=== PATIENT | male | born 1940 | race Caucasian/White ===

== ENCOUNTER 2019-10-27 18:42 | Inpatient (IN) | payer OTHER ==
[~2019-10-27] VITALS: Ht 170.2 cm; Wt 65.8 kg
[2019-10-27 18:46] VITALS: BP 166/74
[2019-10-27 19:15] LABS: ABSOLUTE BASOPHILS 0.1 thou/uL (0.0-0.2); ABSOLUTE EOSINOPHILS 0.2 thou/uL (0.0-0.7); ABSOLUTE LYMPHOCYTES 0.8 thou/uL (0.8-5.3); ABSOLUTE MONOCYTES 0.4 thou/uL (0.0-1.2); ABSOLUTE NEUTROPHILS 4.3 thou/uL (1.6-8.1); BASOPHILS 0.9 %; EOSINOPHILS 2.7 %; HEMATOCRIT 32.2 % (42.0-52.0); HEMOGLOBIN 11.1 gm/dL (14.0-18.0); LYMPHOCYTES 13.9 %; MCH 31.1 pg (26.0-34.0); MCHC 34.5 g/dL (28.0-37.0); MCV 90.2 fL (80.0-100.0); MONOCYTES 7.2 %; NUCLEATED RBCS 0 /100WBC; PLATELET COUNT* 127 thou/uL (150-400); POLYS 75.3 %; RBC 3.57 mil/uL (4.50-6.00); RDW-CV 14.5 % (10.5-14.5); WBC 5.7 thou/uL (4.0-11.0)
[2019-10-27 19:25] LABS: APTT 26.6 Seconds (25.0-31.3); INR 1.1
[2019-10-27 19:26] LABS: CALCIUM 8.5 mg/dL (8.5-10.1); CREATININE 1.2 mg/dL (0.6-1.3); POTASSIUM 4.6 mmol/L (3.5-5.1)
[2019-10-27] MEDS ORDERED: ASA81BEC PO (19:27)
[2019-10-27] MEDS ORDERED: ATORVASTATIN CA20 MG PO (19:27)
[2019-10-27] MEDS ORDERED: PLAVIX 75 MG TA75 MG PO (19:27)
[2019-10-27] MEDS ORDERED: CARVEDILOL25 MG PO (19:27)
[2019-10-27] MEDS ORDERED: NORVASC 2.5 MG2.5 M1 PO (19:27)
[2019-10-27] MEDS ORDERED: FUROSEMIDE 20 M20 MG PO (19:28)
[2019-10-27] MEDS ORDERED: REPATHA SY140 MG/1 M (19:28)
[2019-10-27] MEDS ORDERED: FISH OIL 1,0001 EAC1 PO (19:28)
[2019-10-27] MEDS ORDERED: BIDIL TABLET1 EACH PO (19:29)
[2019-10-27] MEDS ORDERED: LISINOPRIL-HCT1 EAC2 PO (19:30)
[2019-10-27] MEDS ORDERED: METFORMIN HCL500 M3 PO (19:30)
[2019-10-27] MEDS ORDERED: TAMSULOSIN HCL0.4 MG PO (19:31)
[2019-10-27 19:40] LABS: INFLUENZA A ANTIGEN Negative (Negative); INFLUENZA B ANTIGEN Negative (Negative)
[2019-10-27 19:40] LABS: ALBUMIN 3.1 g/dL (3.4-5.0); MAGNESIUM 1.9 mg/dL (1.8-2.4); TOTAL BILIRUBIN 0.3 mg/dL (<0.1-1.0); TOTAL PROTEIN 6.3 g/dL (6.4-8.2)
[2019-10-27 21:59] VITALS: BP 125/68
[2019-10-27 22:30] VITALS: BP 120/64
[2019-10-28 04:00] VITALS: BP 125/63
--- NOTE | 2019-10-28 07:59 | NUR ---
PATIENT ADMITTED TO ROOM 114 FROM THE ER AT APPROXIMATELY 2200. PATIENT ORIENTED TO ROOM AND POLICIES AND FALL EDUCATION GIVEN AND FALL AGREEMENT SIGNED. PATIENT UP WITH SBA. VSS ON 2L 02 VIA NASAL CANNULA. IV IN LEFT AC-SL. ASSESSMENT CHARTED. PATIENT INSTRUCTED TO USE CALL LIGHT WHEN NEEDING ASSISTANCE. HOURLY R0UNDS MADE. WILL CONTINUE WITH PLAN OF CARE AND NURSING TO MONITOR.
[2019-10-28 09:30] VITALS: BP 158/83
[2019-10-28 13:35] VITALS: BP 154/84
[2019-10-28 16:00] VITALS: BP 126/67
--- NOTE | 2019-10-28 16:54 | NUR ---
Pt lives at home and has a supportive sister as a contact. SW to continue to follow to assist with safe dc planning.
--- NOTE | 2019-10-28 18:53 | NUR ---
PATIENT PLEASANT AND COOPERATIVE W/ ASSESS AND CARES. PATIENT DENIES PAIN. NOTED SOB W/ CONVERSATION. O2/NC ON. PATIENT RESTING IN BED, HOB UP 35 DEGREES. IV SITE NOTED WNL. TELE NOTED AV PACED. PATIENT DENIES NURSING NEEDS. CALL LIGHT IN REACH. ISO PRECAUTIONS MAINTAINED. ~TJRN
[2019-10-28] MEDS ORDERED: VITAMIN C500 M1 PO (20:37)
[2019-10-28] MEDS ORDERED: VITAMIN D325 MC3 PO (20:38)
[2019-10-28] MEDS ORDERED: SUPER THERAVIT1 EACH PO (20:39)
[2019-10-28] MEDS ORDERED: GREEN TEA250 MG PO (20:40)
[2019-10-28] MEDS ORDERED: APPLE CIDER VI300 MG PO (20:41)
[2019-10-28 22:45] VITALS: BP 153/77
[2019-10-29] VITALS: BP 128/68
[2019-10-29 04:00] VITALS: BP 139/67
[2019-10-29 05:44] LABS: ABSOLUTE EOSINOPHILS 0.1 thou/uL (0.0-0.7); ABSOLUTE LYMPHOCYTES 0.6 thou/uL (0.8-5.3); ABSOLUTE MONOCYTES 0.6 thou/uL (0.0-1.2); ABSOLUTE NEUTROPHILS 3.5 thou/uL (1.6-8.1); BASOPHILS 0.4 %; EOSINOPHILS 1.5 %; LYMPHOCYTES 13.2 %; MCHC 34.4 g/dL (28.0-37.0); MONOCYTES 11.7 %; MPV 8.1 fl. (7.2-11.1); NUCLEATED RBCS 0 /100WBC; PLATELET COUNT* 102 thou/uL (150-400); POLYS 73.2 %; RBC 3.56 mil/uL (4.50-6.00); RDW-CV 14.8 % (10.5-14.5); WBC 4.7 thou/uL (4.0-11.0)
[2019-10-29 06:11] LABS: CALCIUM 7.9 mg/dL (8.5-10.1); CREATININE 0.9 mg/dL (0.6-1.3); POTASSIUM 3.5 mmol/L (3.5-5.1); TOTAL BILIRUBIN 0.5 mg/dL (<0.1-1.0); TOTAL PROTEIN 5.9 g/dL (6.4-8.2)
--- NOTE | 2019-10-29 08:06 | NUR ---
PATIENT HAS SLEPT OFF AND ON DURING THE NIGHT. 02 INCREASED TO 3L D/T C/O SOA. VSS. LUNGS WHEEZY AND COARSE. ASSESSMENT CHARTED. MEDICATIONS GIVEN ORDERED AND CHARTED. RESULTS BACK AND SHOW PATIENT NEGATIVE FOR COVID AT THIS TIME. IV IN LEFT AC-SL. PATIENT INSTRUCTED TO USE CALL LIGHT WHEN NEEDING ASSISTANCE. HOURLY ROUNDS MADE. WILL CONTINUE WITH PLAN OF CARE AND NURSING TO MONITOR.
[2019-10-29 09:06] VITALS: BP 152/72
--- NOTE | 2019-10-29 10:47 | NUR ---
PT TRANSFERRING OFF UNIT. PT ALERT AND ORIENTED. ON 3 LITERS O2. PT UP FOR MEALS. PT DENIED ANY NEEDS AT THIS TIME. FALL RISK PRECAUTIONS IN PLACE. HOURLY ROUNDING COMPLETED. WILL CONTINUE TO MONITOR.
[2019-10-29 15:16] LABS: URINE BILIRUBIN NEGATIVE (Negative); URINE BLOOD NEGATIVE (Negative); URINE CLARITY CLEAR; URINE COLOR YELLOW; URINE GLUCOSE-RANDOM NEGATIVE (Negative); URINE KETONES NEGATIVE (Negative); URINE LEUKOCYTES NEGATIVE (Negative); URINE NITRITE NEGATIVE (Negative); URINE PROTEIN NEGATIVE (Negative); URINE SPECIFIC GRAVITY 1.015 (1.005-1.030)
[2019-10-29 16:49] VITALS: BP 131/74
[2019-10-29 19:50] VITALS: BP 133/68
[2019-10-30] VITALS: BP 129/66
[2019-10-30 04:00] VITALS: BP 138/71
[2019-10-30 06:18] LABS: HEMATOCRIT 31.5 % (42.0-52.0); HEMOGLOBIN 10.8 gm/dL (14.0-18.0); MCH 30.8 pg (26.0-34.0); MCHC 34.4 g/dL (28.0-37.0); MCV 89.6 fL (80.0-100.0); MPV 8.6 fl. (7.2-11.1); RBC 3.51 mil/uL (4.50-6.00); RDW-CV 14.6 % (10.5-14.5); WBC 4.5 thou/uL (4.0-11.0)
[2019-10-30 06:37] LABS: CALCIUM 8.3 mg/dL (8.5-10.1); CREATININE 0.8 mg/dL (0.6-1.3); MAGNESIUM 2.2 mg/dL (1.8-2.4); POTASSIUM 3.7 mmol/L (3.5-5.1)
--- NOTE | 2019-10-30 07:51 | NUR ---
PT CARE ASSUMED AT 1930. SAT MAINTAINED IN 02. ALERT AND ORIENTED X4. DENIES PAIN AND SOB. CALL LIGHT WITHIN REACH AND BED IN LOW POSITION. HOURLY ROUNDING DONE FOR PT SAFETY.
[2019-10-30 08:00] VITALS: BP 137/68
[2019-10-30] MEDS ORDERED: AZITHROMYCIN500 MG PO (09:03)
[2019-10-30] MEDS ORDERED: PREDNISONE 20 M20 MG PO (09:03)
[2019-10-30] MEDS ORDERED: CEFDINIR300 MG PO (09:03)
[2019-10-30 11:16] VITALS: BP 137/68
--- NOTE | 2019-10-30 12:14 | NUR ---
ASSUMED PT CARE AT 0800, AOX4, UP AD MARIO, O2 SAT 90'S RA. TRACING A PACED ON TELE. PT FOR DISCHARGE. VSS, AM ASSESSMENT CHARTED, MEDS GIVEN PER SEP. REST AND EXER BY PT SAYS DOES NOT NEED O2 AT HOME. WILL CONTINUE TO MONITOR.
--- NOTE | 2019-10-30 13:48 | NUR ---
DISCHARGED PLAN DISCUSS WITH PT. MEDICATION PACKET/SCRIPT GIVEN. IV, TELE REMOVED. ALL BELONGINGS PACKED AND CHECKED. LEFT THE UNIT VIA WHEELCHAIR AT 1340.
--- NOTE | 2019-11-01 12:22 | EKG ---
[place] [address] ELECTROCARDIOGRAM REPORT Name: YAZMINPHIL Zaira Room: [address] IN ..#: [id number] Admission: 10/27/19 Attend Phys: Tiffany reed Sa Discharge: 10/30/19 Date of : 38 Date of Service: 10/27/19 1849 Report #: [id number] THIS REPORT FOR: //name// [facility] ED Test Date: 2019-10-27 Test Time: 18:49:29 Pat Name: PHIL ARCE Department: Room: [facility] Gender: M Sack [employer] Machine: MONIQUE : 1940 Requested By: Sami Molina Order Number: [id number] MD: Jayden Lo Measurements Intervals [place] Rate: 86 P: [place]: 228 QRS: -30 QRSD: 175 T: 166 QT: 428 QTc: 512 Interpretive Statements A-V dual-paced complexes with pvc's No further analysis attempted due to paced rhythm No previous ECG available for comparison Electronically Signed On 10-28-2019 9:10:06 CDT by Jayden Lo [email or web address] <ELECTRONICALLY SIGNED> By: Jayden Lo MD, [facility] 10/28/19 0910 1849 1849 Jayden Lo MD, [facility] /EPI
== END 2019-10-30 13:40 | disposition home or self-care (01) | DRG 193 ==
LOC: M.ERS 18:42 → M.TBA-ER 20:27 → M.ORTHSURG 20:27 → M.2W 10-29 11:22
PROVIDERS: Emergency Medicine; Family Medicine; Internal Medicine; Nurse Practitioner; ADMIT Family Medicine
DX: J15.9 Unspecified bacterial pneumonia (principal); J96.01 Acute respiratory failure with hypoxia; I10 Essential (primary) hypertension; I25.10 Atherosclerotic heart disease of native coronary artery without angina pectoris; D69.6 Thrombocytopenia, unspecified; Z87.891 Personal history of nicotine dependence; Z95.5 Presence of coronary angioplasty implant and graft; Z95.1 Presence of aortocoronary bypass graft; Z95.0 Presence of cardiac pacemaker; Z03.818 Encounter for observation for suspected exposure to other biological agents ruled out; Z86.73 Personal history of transient ischemic attack (TIA), and cerebral infarction without residual deficits; Z79.82 Long term (current) use of aspirin; Z79.899 Other long term (current) drug therapy; Z79.01 Long term (current) use of anticoagulants